=== PATIENT | female | born 1960 | race Caucasian/White ===

== ENCOUNTER 2022-03-12 17:29 | Emergency (ER) | payer BC, SELFPAY ==
--- NOTE | 2022-03-12 17:29 | ECG_ITS ---
APPROVED REPORT Exam: Resting ECG HR:94 bpm ECG Measurements Heart Rate 94 AXES PA 126 P 78 QRSd 76 QRS 72 QT 318 T 69 QTc 370 Conclusion SINUS RHYTHM Left atrial abnormality BORDERLINE ECG UNCONFIRMED REPORT Electronically signed by : Dominik Francis MD 03/13/2022 09:50:40
[2022-03-12 17:32] VITALS: BP 148/108; PULSE 80; RESP 16; TEMP 36.9; O2SAT 98; BMI 20.1
--- NOTE | 2022-03-12 17:36 | XR_ITS ---
PROCEDURE INFORMATION: Exam: XR Chest Exam date and time: 03/12/22 05:39 PM Age: 61 years old Clinical indication: Pain; Chest pressure; Additional info: Chest pain TECHNIQUE: Imaging protocol: XR of the chest. Views: 1 view. COMPARISON: No relevant prior studies available. FINDINGS: Lungs: Unremarkable. No consolidation. Pleural spaces: Unremarkable. No pleural effusion. No pneumothorax. Heart/Mediastinum: Unremarkable. No cardiomegaly. Bones/joints: Unremarkable. IMPRESSION: No acute findings.
[2022-03-12 17:50] LABS: Basophils # 0.1 K/mm3 (0-0.2); Basophils % 4.6 % (0.1-2.0); Eosinophils % 0.7 % (0.1-12.0); Hematocrit 48.5 % (37.0-47.0); Hemoglobin 16.5 g/dL (12.2-16.2); Lymphocytes # 1.1 K/mm3 (0.7-4.5); Lymphocytes % 51.3 % (10-50); Mean Corpuscular HGB Conc 34.1 g/dL (31.8-35.4); Mean Corpuscular Hemoglobin 31.7 pg (27.0-31.2); Mean Corpuscular Volume 92.9 fl (81-99); Mean Platelet Volume 7.6 fl (7.4-10.4); Monocytes # 0.3 K/mm3 (0.1-1.0); Monocytes % 11.6 % (1.7-9.3); Neutrophils # 0.8 K/mm3 (1.8-7.8); Neutrophils % 36.3 % (37.0-80.0); Platelet Count 228 K/mm3 (142-424); Red Blood Count 5.22 M/mm3 (4.20-5.40); Red Cell Distribution Width 13.6 % (11.5-17.5); White Blood Count 2.2 K/mm3 (4.8-10.8)
[2022-03-12 18:04] LABS: MANUAL DIFFERENTIAL MANUAL DIFFERENTIAL (MANUAL DIFF)
[2022-03-12 18:05] LABS: Alanine Aminotransferase 25 U/L (12-78); Albumin Level 4.4 g/dl (3.5-5.0); Albumin/Globulin Ratio 1.6 (1.1-1.8); Alkaline Phosphatase 65 U/L (38-126); Anion Gap 13.6 mEq/L (5-15); Aspartate Amino Transferase 34 U/L (14-36); Bilirubin,Total 0.2 mg/dl (0.2-1.3); Blood Urea Nitrogen 13 mg/dl (7-17); Calcium 9.5 mg/dl (8.4-10.2); Carbon Dioxide 25 mmol/L (22.0-30.0); Chloride 99 mmol/L (98-107); Creatinine Clearance Estimated 59 mL/min (50-200); Estimated Glomerular Filt Rate 73 ml/min (>60); GFR (African American) 89 ML/MIN (>60); Globulin 2.7 g/dL (1.3-3.2); Glucose 136 mg/dl (74-100); Potassium 3.6 mmoL/L (3.5-5.1); Sodium 134 mmol/L (136-145); Total Protein,Serum 7.1 g/dl (6.3-8.2)
[2022-03-12 18:17] LABS: Troponin I < 0.01 ng/ml (0.00-0.034)
[2022-03-12 19:15] LABS: Influenza A, PCR Not Detected (NotDetected); Influenza B, PCR Not Detected (NotDetected)
[2022-03-12 19:17] LABS: Lymphocytes % 60 % (10-50); Monocytes % 15 % (2-9); Neutrophils % 23 % (42-76); Platelet Estimate Normal; Total Cells Counted 100
[2022-03-12 19:38] LABS: D-Dimer 0.75 ug/mL (0.0-0.5)
[2022-03-12 19:48] LABS: Coronavirus 19, PCR Detected (NotDetected)
--- NOTE | 2022-03-12 20:28 | PC.NURSE ---
patient refused 2nd trop
--- NOTE | 2022-03-12 20:40 | ECG_ITS ---
APPROVED REPORT Exam: Resting ECG HR:79 bpm ECG Measurements Heart Rate 79 AXES QRSd 74 QRS 70 QT 344 T 49 QTc 379 Conclusion SUPRAVENTRICULAR RHYTHM MODERATE ST DEPRESSION [0.05+ mV ST DEPRESSION] ABNORMAL ECG UNCONFIRMED REPORT Electronically signed by : Dominik Francis MD 03/13/2022 09:48:35
--- NOTE | 2022-03-12 20:56 | [facility].EDCP ---
ED Disposition Clinical Impression: Chest pain Disposition: Home, Self-Care Condition on Discharge: Good Instructions: DI for Atypical Chest Pain Referrals: Provider,Referral, [Primary Care Provider] - - Critical Care Critical Care Time: No Attestation: On 03/12/22, the high probability of a clinically significant, sudden or life threatening deterioration of the following system(s) required my full and direct attention, intervention and personal management. The time I documented below is in addition to time spent performing reported procedures but includes the following listed in this critical care notation. Medical Decision Making - Boris Inquiry Pt receiving controlled substance: No Vital Signs: 03/12/22 17:32 03/12/22 20:58 Temperature 98.4 F 98.1 F Temperature Source Oral Oral Pulse Rate 80 Pulse Rate [Radial] 80 Respiratory Rate 16 16 Blood Pressure 134/78 Blood Pressure [Right Arm] 148/108 H Blood Pressure Mean [Right Arm] 121 Blood Pressure Position [Right Arm] Sitting 02 Sat by Pulse Oximetry 98 Oxygen Delivery Method Room Air - Lab Data Lab Results 03/12/22 17:40: WBC 2.2 L, RBC 5.22, Hgb 16.5 H, Hct 48.5 H, MCV 92.9, MCH 31.7 H, MCHC 34.1, RDW 13.6, Plt Count 228, MPV 7.6, Neut % (Auto) 36.3 L, Lymph % (Auto) 51.3 H, Anderson % (Auto) 11.6 H, Eos % (Auto) 0.7, Baso % (Auto) 4.6 H, Neut # (Auto) 0.8 L*, Lymph # (Auto) 1.1, Anderson # (Auto) 0.3, Eos # (Auto) 0.0, Baso # (Auto) 0.1, Total Counted 100, Neutrophils % (Manual) 23 L, Lymphocytes % (Manual) 60 H, Monocytes % (Manual) 15 H, Basophils % (Manual) 2.0 H, Platelet Estimate Normal, RBC Morphology Not Reportable 03/12/22 17:40: Sodium 134 L, Potassium 3.6, Chloride 99, Carbon Dioxide 25, Anion Gap 13.6, BUN 13, Creatinine 0.80, Estimated Creat Clear 59, Estimated GFR 73, Est GFR ( Amer) 89, Glucose 136 H, Calcium 9.5, Total Bilirubin 0.2, AST 34, ALT 25, Alkaline Phosphatase 65, Troponin I < 0.01, Total Protein 7.1, Albumin 4.4, Globulin 2.7, Albumin/Globulin Ratio 1.6 03/12/22 17:40: D-Dimer 0.75 H 03/12/22 19:10: SARS-CoV-2 (PCR) Detected A, Influenza A Untype (PCR) Not detected, Influenza Type B (PCR) Not detected Result diagrams: 03/12/22 17:40 03/12/22 17:40 Medical Decision Narrative: ddx includes but not limited to acs, thoracic mass, pe. hds, nad, well appearing on room air. labs show leukopenia, covid+ on rapid testing, cxr without acute findings, troponin <0.01, d dimer 0.75 but per YEARS criteria, acute PE unlikely. Serial EKGs without acute ischemic changes. Pain flared in ED but resolved on its own. Given strict ED return precautions. ADvised to f/u with PCP and pt states she will make appointment for within 1 week. Chest Pain HPI - General Chief Complaint: Chest Pain Stated Complaint: chest pain Time Seen by Provider: 03/12/22 18:00 Mode of Arrival: Ambulatory Limitations: No Limitations Description of Symptoms (Recalled from ER Triage Doc. by RN): TO ED PER [facility] CAR WITH C/O INTERMITTENT LT SIDE CHEST PAIN X 3 MONTHS STATES PAIN IS GETTING WORSE. PT DENIES ANY NAUSEA, VOMITING, SOB, DIAPHORESIS, PAIN IN LOWER EXTREMITIES. PT DENIES ANY PAIN AT PRESENT. - History of Present Illness HPI narrative: 61 yo female w/ hx breast cysts presents with chest pain. left chest pain that radiates to left upper arm for last 3 months, intermittent, currently pain free but worsened this am. does not worsen with exertion or deep breathing. recent covid positive contact at work. no increased cough, has had intermittent nonbloody diarrhea. - Related Data Allergies Allergy/AdvReac Type Severity Reaction Status Date / Time metoclopramide [From Reglan] Allergy Verified 03/12/22 17:35 [facility] History - Hepatitis A Screen Attestation statement:: This patient has been screened for Hepatitis A risk factors. ROS Obtained: Yes Systems reviewed as appropriate & no additional complaints - Cardiovascular Cardiovascular: Report
[2022-03-12 20:58] VITALS: BP 134/78; PULSE 80; RESP 16; TEMP 36.7; O2SAT 98
== END 2022-03-12 20:59 | disposition home or self-care (01) ==
PROVIDERS: Emergency Provider Student in an Organized Health Care Education/Training Program
DX: R07.9 Chest pain, unspecified (principal); D72.819 Decreased white blood cell count, unspecified; Z88.8 Allergy status to other drugs, medicaments and biological substances
CPT/HCPCS: 71045; 80053; 84484; 85007; 85025; 85378; 93005; 99284; C9803; U0003; U0005

== ENCOUNTER → 2022-08-17 09:10 | Outpatient (POV) | payer BC, SELFPAY | PROVIDERS: Visit Provider Dermatology | DX: Z00.00 Encounter for general adult medical examination without abnormal findings (principal) ==

== ENCOUNTER 2023-08-20 19:58 | Emergency (ER) | payer BC, SELFPAY ==
[2023-08-20 19:59] VITALS: BP 160/92; PULSE 88; RESP 18; TEMP 36.6; O2SAT 98; BMI 22.8
[2023-08-20 22:02] VITALS: BP 141/94; PULSE 81; RESP 16; TEMP 36.6; O2SAT 99
--- NOTE | 2023-08-21 22:12 | HMH.EDGENADL ---
Discharge Plan Disposition Patient Disposition: Home, Self-Care Condition: Good Referrals Follow up/Referrals: Provider,Referral, MD [Primary Care Provider] - See instructions Activity Restrictions/Add. Instructions Additional Instructions/Restrictions: Please return to the emergency department if you experience any new or worsening symptoms. Clinical Impressions Clinical Impression: Traumatic hematoma of hand Qualifiers: Encounter type: initial encounter Laterality: left Qualified Code(s): S60.222A - Contusion of left hand, initial encounter Discharge ED Provider: Pelon Smith Adult [facility] General Chief complaint: Extremity Injury, Upper Stated complaint: LT hand swelling, bruised Time Seen by Provider: 08/20/23 20:12 Mode of Arrival: Ambulatory Source of Information: Patient Limitations: No Limitations Description of Symptoms (Recalled from ER Triage Doc. by RN): Patient reports left hand tightness that started suddenly. Patient denies any injury or trauma to the hand. Bruising and swelling noted to left base of index finger. History of Present Illness HPI narrative: The patient presents with a chief complaint of a swollen right hand, which was first noticed earlier this evening. The patient denies any history of trauma, bug bites, or itching. The swelling has been progressively worsening, causing discomfort but not severe pain. The patient has been applying ice to the affected area. The patient denies any numbness or tingling in the fingers and reports being able to move them without difficulty, although the swelling makes it more challenging. The patient has no history of taking blood thinners and denies experiencing any fevers or chills. Related Data Allergies Allergy/AdvReac Type Severity Reaction Status Date / Time metoclopramide [From Reglan] Allergy Verified 03/12/22 17:35 [facility] Disclaimer: The information contained in this section may have been updated after the patient was seen, as this information can be updated by other users. Social History Smoking Status: Never smoker alcohol intake: never current occupational status: other Travel in the last 8 weeks: None ROS Obtained: Yes Systems reviewed as appropriate & no additional complaints except as documented As per HPI Physical Exam General General appearance: alert and in no apparent distress Head Head exam: atraumatic and normocephalic Eye Eye exam: Present normal appearance Neck Neck exam: Present normal inspection Chest Chest inspection: Present normal inspection and symmetric chest wall rise Respiratory Respiratory exam: Present normal lung sounds bilaterally; Absent respiratory distress Cardiovascular Cardiovascular exam: Present regular rate and normal rhythm Abdominal Exam Abdominal exam: Present soft Extremities Exam Extremities exam: Present other (Hemostatic hematoma left dorsal aspect of left hand, distally neurovascularly intact.) Neurological Exam Neurological exam: Present alert and oriented X3 Psychiatric Psychiatric exam: Present normal affect and normal mood Skin Skin exam: Present warm and dry Medical Decision Making Medical Records Medical records reviewed: Yes I reviewed the patient's medical records. Boris Inquiry Pt receiving controlled substance: No Vital Signs: 08/20/23 19:59 08/20/23 22:02 Temperature 97.8 F 98 F Temperature Source Oral Oral Pulse Rate 81 Pulse Rate [Left Radial] 88 Respiratory Rate 18 16 Blood Pressure 141/94 H Blood Pressure [Right Arm] 160/92 H Blood Pressure Mean [Right Arm] 114 Blood Pressure Source [Right Arm] Automatic Cuff Blood Pressure Position Sitting Blood Pressure Position [Right Arm] Sitting 02 Sat by Pulse Oximetry 98 Oxygen Delivery Method Room Air Room Air Medical Decision Narrative: Patient with history and exam per above presenting for evaluation of hand lesion Diagnoses considered include fracture, vascular injury, nerve i
== END 2023-08-20 22:03 | disposition home or self-care (01) ==
PROVIDERS: Emergency Provider Emergency Medicine
DX: S60.222A Contusion of left hand, initial encounter (principal); X58.XXXA Exposure to other specified factors, initial encounter
CPT/HCPCS: 99282

== ENCOUNTER 2025-05-02 14:54 | Outpatient (CLI) | payer BC, SELFPAY ==
--- NOTE | 2025-05-02 14:59 | XR_ITS ---
FINAL REPORT CLINICAL HISTORY: RT HAND PAIN X 1 MONTH/ ATTN 1ST FINGER LIMTIED RANGE OF MOTION COMPARISON: None FINDINGS: RIGHT HAND Three views show no evidence of acute displaced fracture or dislocation of the visualized bony architecture. There is mild degenerative change in the DIP and PIP joints. Mild osteopenia is noted. IMPRESSION: Mild degenerative change without acute bony abnormality. Reviewed, Interpreted and Dictated by Brianna Nieves MD Transcribed by Sharon Molina Authenticated and [facility]
--- OUTSIDE RECORDS SUMMARY | 2025-05-02 15:21 | XMS_ITS | Data Portability ---
Author Organization [place] - [facility] f or Pediatrics, [place] - [facility] Address [address] [place] [address] Assessment Encounter Date Assessment Date Assessment LastModified by Organization Details LastModified Time 01/31/2017 01/31/2017 56 yo f here today for medication refills. using flexeril every few months prn. getting less than two migraines per month and sumatriptan working well. uses hydroxyzine nightly during allergy season with excellent relief of symptoms. she has intentional 10 pound wt loss since september by cutting calories. only new concern is months of vaginal dryness and pain with intercourse. would like to try medication. no personal/fh breast cancer (other than remote aunt). no other concerns. last pap 2014 normal. Not available 01/31/2017 19:00:53 11/04/2017 11/04/2017 since 4 pm last night sudden onset LUQ pain, no n/v/d/constipa tion. slight decrease in appetite. tolerating food okay. no f/c. pain is worse with palpation and movement. no inciting event/trauma/i njury. Not available 11/04/2017 15:18:02 07/07/2018 07/07/2018 Halley is a marva 58 yo PM here for annual moving to [place] in july no concerns Not available 07/07/2018 15:52:06 Plan of Treatment Reminders Order Date Submit Date Provider Last Modified By Organization Details Last Modified Time Details Appointments None recorded. Lab CMP, serum or plasma 2017 018 [facility], [address], [place], [address], 8 16:02:43 amylase + lipase, serum 2017 018 [facility], [address], [place], [address], 8 16:02:44 CBC w/ diff 2017 018 [facility], [address], [place], [address], 8 16:02:43 ESR (erythroc yte sedimenta tion rate), blood 2017 018 [facility], [address] [facility], [place], [address], 8 16:02:44 urinalysi s, reflex culture 2017 018 [facility], [address] [facility] [address] [facility], [place], [address], 8 15:34:06 Referral functiona l capacity referral 2015 016 [email or web address] Not available 6 14:08:46 orthopedi c referral 2015 016 katharine Coles Ala, MD, [address] [place] [address], [place], [address], 6 14:26:27 Procedures None recorded. Surgeries None recorded. Imaging MAMMO, screening , tomosynth esis, bilateral [email or web address], [facility] [place], [place], [address], 9 13:21:27 CT, abdomen + pelvis, w/wo contrast 2017 018 [email or web address] [facility], [facility] [facility] , [address], [place], [address], 8 13:46:15 Medication Orders sumatript an 50 mg tablet 2017 018 INTERFACE [facility] #[id number], [address], [place], [place], [id number], 8 15:49:39 hydroxyzi ne HCl 50 mg tablet 2016 017 INTERFACE [facility] #[id number], [address], [place], [place], [id number], 7 18:53:08 cyclobenz aprine 10 mg tablet 2016 017 INTERFACE [facility] #[id number], [address], [place], [place], [id number], 7 18:53:07 sumatript an 50 mg tablet 2016 017 INTERFACE [facility] #[id number], [address], [place], [place], [id number], 7 18:53:07 Estrace 0.01% (0.1 mg/gram) vaginal cream 2016 017 INTERFACE [facility] #[id number], [address], [place], [place], [id number], 7 18:58:40 Senna with Docusate Sodium 8.6 mg-50 mg tablet 2014 015 [email or web address] [facility] #[id number], [address], [place], [place], [id number], 8 14:30:42 hydroxyzi ne HCl 50 mg tablet 2014 015 [facility] #94227, [address], [place], [place], [id number], 5 19:26:41 cyclobenz aprine 10 mg tablet 2014 015 INTERFACE [facility] #57039, [address] [place], [place], [id number], 5 19:26:51 sumatript an 50 mg tablet 2014 015 [email or web address] #74390, [address], [place], [id number], 5 19:26:41 Patient TargetsNo targets recorded. Patient InstructionsNo instructions recorded. 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 Referring Physician: Courtney Spencer [facility] Peggy, null Encounter Date: 12/12/2015 Results Created Date Observation Date Name Description Value Unit Range Abnormal Flag Note LastModifiedBy Organization Detail LastModifiedTime 01/16/20 15 01/15/2015 urina lysis compl ete, refle x cultu re color YELLOW yellow normal Not Available [facility] [address], [address], 01/15/2015 18:59:11 01/16/20 15 01/15/2015 urina lysis compl ete, refle x cultu re appearance HAZY clear abnormal Not Available [facility] [address], [address], 01/15/2015 18:59:11 01/16/20 15 01/15/2015 urina lysis compl ete, refle x cultu re specific gravity 1.025 1.001- 1.035 normal Not Available [facility] [address], [address], 01/15/2015 18:59:11 01/16/20 15 01/15/2015 urina lysis compl ete, refle x cultu re pH 5.5 5.0-8. 0 normal Not Available [facility] [address] [place] [address], [address], 01/15/2015 18:59:11 01/16/20 15 01/15/2015 urina lysis compl ete, refle x cultu re glucose NEGATI VE negati ve normal Not Available [facility] - [address], [address], 01/15/2015 18:59:11 01/16/20 15 01/15/2015 urina lysis compl ete, refle x cultu re bilirubin NEGATI VE negati ve normal Not Available [facility] - [address], [address], 01/15/2015 18:59:11 01/16/20 15 01/15/2015 urina lysis compl ete, refle x cultu re ketones TRACE negati ve abnormal Not Available [facility] - [address], [address], 01/15/2015 18:59:11 01/16/20 15 01/15/2015 urina lysis compl ete, refle x cultu re occult blood 2+ negati ve abnormal Not Available [facility] - [address], [address], 01/15/2015 18:59:11 01/16/20 15 01/15/2015 urina lysis compl ete, refle x cultu re protein NEGATI VE negati ve normal Not Available [facility] - [address], [address], 01/15/2015 18:59:11 01/16/20 15 01/15/2015 urina lysis compl ete, refle x cultu re nitrite NEGATI VE negati ve normal Not Available [facility] - [address], [address], 01/15/2015 18:59:11 01/16/20 15 01/15/2015 urina lysis compl ete, refle x cultu re leukocyte esterase TRACE negati ve abnormal Not Available [facility] - [address], [address], 01/15/2015 18:59:11 01/16/20 15 01/15/2015 urina lysis compl ete, refle x cultu re WBC 6-10 /hpf < or = 5 abnormal Not Available [facility] - [address], [address], 01/15/2015 18:59:11 01/16/20 15 01/15/2015 urina lysis compl ete, refle x cultu re RBC 3-10 /hpf < or = 2 abnormal Not Available [facility] - [address], [address], 01/15/2015 18:59:11 01/16/20 15 01/15/2015 urina lysis compl ete, refle x cultu re squamous epithelial cells 0-5 /hpf < or = 5 Not Available [facility] - [address], [address], 01/15/2015 18:59:11 01/16/20 15 01/15/2015 urina lysis compl ete, refle x cultu re bacteria FEW /hpf none seen abnormal Not Available [facility] - [address], [address], 01/15/2015 18:59:11 01/16/20 15 01/15/2015 urina lysis compl ete, refle x cultu re note This urine was garcia zed for the prese nce of WBC, RBC, bacte stan, casts , and other forme d eleme nts. Only those eleme nts seen were repor nesha. Not Available [facility] - [address], [address], 01/15/2015 18:59:11 01/16/20 15 01/15/2015 cultu re, urine reflexive urine culture CULTUR E INDICA NESHA - RESULT S TO FOLLOW Not Available [facility] [address] [place] [address], [address], 01/15/2015 18:59:11 01/16/20 15 01/17/2015 cultu re, urine culture, urine, routine abnormal CULTU RE, URINE , ROUTI NE MICRO NUMBE R: [id number] TEST STATU S: PRELI MINAR Y SPECI MEN SOURC E: URINE SPECI MEN QUALI TY: ADEQU ATE RESUL T: 10,00 0-50, 000 CFU/m L of Esche violette a coli , susce ptibi lity test repor t to follo w. Not Available [facility] [address] [place] [address], [address], 01/17/2015 05:05:33 01/16/20 15 01/17/2015 cultu re, urine culture, urine, routine abnormal CULTU RE, URINE , ROUTI NE MICRO NUMBE R: [id number] TEST STATU S: FINAL SPECI MEN SOURC E: URINE SPECI MEN QUALI TY: ADEQU ATE RESUL T: 10,00 0-50, 000 CFU/m L of Esche violette a coli E.col i ----- ----- ----- - INT FEDERICA AMOX/ CLAVU LANAT E S <=2 AMPIC ILLIN S 4 AMP/S ULBAC HUYNH S <=2 CEFEP COLLETTE S <=1 CEFTR IAXON E S <=1 CIPRO FLOXA FLORY S <=0.2 5 ERTAP ENEM S <=0.5 GENTA MICIN S <=1 IMIPE NEM S <=0.2 5 LEVOF LOXAC IN S <=0.1 2 NITRO FURAN TOIN S 32 PIP/T AZOBA CTAM S <=4 TOBRA MYCIN S <=1 TRIME THOPR IM/OBREGON LFA S <=20 S=Aileen cepti ble I=Int ermed iate R=Res istan t * = Not Teste d NR = Not Repor nesha NN = See Thera py Comme nts Not Available [facility] - [address], [address], 01/17/2015 17:45:18 01/21/20 15 01/20/2015 wet mount source: VAGINA L Not Available [facility] - [address], [address], 01/20/2015 14:08:31 01/21/20 15 01/20/2015 wet mount result: MODER ATE EPITH ELIAL CELLS MODER ATE WBCS MODER ATE BACTE STAN NO YEAST , TRICH OMONA S, OR CLUE CELLS SEEN Not Available [facility] - [address], [address], 01/20/2015 14:08:31 01/23/20 15 01/22/2015 urina lysis compl ete, refle x cultu re color YELLOW yellow normal Not Available [facility] - [address], [address], 01/22/2015 23:48:55 01/23/20 15 01/22/2015 urina lysis compl ete, refle x cultu re appearance CLEAR clear normal Not Available [facility] - [address], [address], 01/22/2015 23:48:55 01/23/20 15 01/22/2015 urina lysis compl ete, refle x cultu re specific gravity 1.020 1.001- 1.035 normal Not Available [facility] - [address], [address], 01/22/2015 23:48:55 01/23/20 15 01/22/2015 urina lysis compl ete, refle x cultu re pH 6.0 5.0-8. 0 normal Not Available [facility] - [address], [address], 01/22/2015 23:48:55 01/23/20 15 01/22/2015 urina lysis compl ete, refle x cultu re glucose NEGATI VE negati ve normal Not Available [facility] - [address], [address], 01/22/2015 23:48:55 01/23/20 15 01/22/2015 urina lysis compl ete, refle x cultu re bilirubin NEGATI VE negati ve normal Not Available [facility] - [address], [address], 01/22/2015 23:48:55 01/23/20 15 01/22/2015 urina lysis compl ete, refle x cultu re ketones NEGATI VE negati ve normal Not Available [facility] - [address], [address], 01/22/2015 23:48:55 01/23/20 15 01/22/2015 urina lysis compl ete, refle x cultu re occult blood TRACE negati ve abnormal Not Available [facility] - [address], [address], 01/22/2015 23:48:55 01/23/20 15 01/22/2015 urina lysis compl ete, refle x cultu re protein NEGATI VE negati ve normal Not Available [facility] - [address], [address], 01/22/2015 23:48:55 01/23/20 15 01/22/2015 urina lysis compl ete, refle x cultu re nitrite NEGATI VE negati ve normal Not Available [facility] - [address], [address], 01/22/2015 23:48:55 01/23/20 15 01/22/2015 urina lysis compl ete, refle x cultu re leukocyte esterase NEGATI VE negati ve normal Not Available [facility] - [address], [address], 01/22/2015 23:48:55 01/23/20 15 01/22/2015 urina lysis compl ete, refle x cultu re RBC 3-10 /hpf < or = 2 abnormal Not Available [facility] - [address], [address], 01/22/2015 23:48:55 01/23/20 15 01/22/2015 urina lysis compl ete, refle x cultu re squamous epithelial cells 0-5 /hpf < or = 5 Not Available [facility] - [address], [address], 01/22/2015 23:48:55 01/23/20 15 01/22/2015 urina lysis compl ete, refle x cultu re bacteria FEW /hpf none seen abnormal Not Available [facility] - [address], [address], 01/22/2015 23:48:55 01/23/20 15 01/22/2015 urina lysis compl ete, refle x cultu re comments MODERA TE MUCOUS THREAD S Not Available [facility] - [address], [address], 01/22/2015 23:48:55 01/23/20 15 01/22/2015 urina lysis compl ete, refle x cultu re note This urine was garcia zed for the prese nce of WBC, RBC, bacte stan, casts , and other forme d eleme nts. Only those eleme nts seen were repor nesha. Not Available [facility] - [address], [address], 01/22/2015 23:48:55 01/23/20 15 01/22/2015 cultu re, urine reflexive urine culture NO CULTUR E INDICA NESHA Not Available [facility] - [address], [address], 01/22/2015 23:48:55 01/25/20 15 01/25/2015 lipid panel , serum cholesterol, total 180 mg/dL 125-20 0 normal Not Available [facility] - [address], [address], 01/25/2015 09:48:53 01/25/20 15 01/25/2015 lipid panel , serum HDL cholesterol 76 mg/dL > or = 46 normal Not Available [facility] - [address], [address], 01/25/2015 09:48:53 01/25/20 15 01/25/2015 lipid panel , serum triglyceride s 79 mg/dL <150 normal Not Available [facility] - [address], [address], 01/25/2015 09:48:53 01/25/20 15 01/25/2015 lipid panel , serum LDL-choleste rol 88 mg/dL _(gibran c) <130 normal Zaire able range <100 mg/dL for patie nts with CHD or diabe dinorah and <70 mg/dL for diabe tic patie nts with known heart disea se. Not Available [facility] - [address], [address], 01/25/2015 09:48:53 01/25/20 15 01/25/2015 lipid panel , serum chol/HDLC ratio 2.4 (calc ) < or = 5.0 normal Not Available [facility] - [address], [address], 01/25/2015 09:48:53 01/25/2001/25/2015 lipid panel , serum non HDL cholesterol 104 mg/dL _(gibran c) normal Targe t for non-H DL melissa stero l is 30 mg/dL highe r than LDL melissa stero l targe t. Not Available [facility] - [address], [address], 01/25/2015 09:48:53 01/25/20 15 01/25/2015 CBC w/ auto diff white blood cell count 5.3 thous and/u L 3.8-10 .8 normal Not Available [facility] [address], [address], 01/25/2015 09:48:54 01/25/20 15 01/25/2015 CBC w/ auto diff red blood cell count 4.92 edmundo on/uL 3.80-5 .10 normal Not Available [facility] [address], [address], 01/25/2015 09:48:54 01/25/20 15 01/25/2015 CBC w/ auto diff hemoglobin 15.3 g/dL 11.7-1 5.5 normal Not Available [facility] [address], [address], 01/25/2015 09:48:54 01/25/20 15 01/25/2015 CBC w/ auto diff hematocrit 47.0 % 35.0-4 5.0 high Not Available [facility] [address], [address], 01/25/2015 09:48:54 01/25/20 15 01/25/2015 CBC w/ auto diff MCV 95.4 fL 80.0-1 00.0 normal Not Available [facility] [address], [address], 01/25/2015 09:48:54 01/25/2001/25/2015 CBC w/ auto diff MCH 31.0 pg 27.0-3 3.0 normal Not Available [facility] [address], [address], 01/25/2015 09:48:54 01/25/20 15 01/25/2015 CBC w/ auto diff MCHC 32.5 g/dL 32.0-3 6.0 normal Not Available [facility] [address], [address], 01/25/2015 09:48:54 01/25/20 15 01/25/2015 CBC w/ auto diff RDW 13.3 % 11.0-1 5.0 normal Not Available [facility] - [address], [address], 01/25/2015 09:48:54 01/25/20 15 01/25/2015 CBC w/ auto diff platelet count 335 thous and/u L 140-40 0 normal Not Available [facility] - [address], [address], 01/25/2015 09:48:54 01/25/20 15 01/25/2015 CBC w/ auto diff absolute neutrophils 2459 cells /uL 1500-7 800 normal Not Available [facility] - [address], [address], 01/25/2015 09:48:54 01/25/20 15 01/25/2015 CBC w/ auto diff absolute lymphocytes 2231 cells /uL 850-39 00 normal Not Available [facility] - [address], [address], 01/25/2015 09:48:54 01/25/20 15 01/25/2015 CBC w/ auto diff absolute monocytes 413 cells /uL 200-95 0 normal Not Available [facility] - [address], [address], 01/25/2015 09:48:54 01/25/20 15 01/25/2015 CBC w/ auto diff absolute eosinophils 138 cells /uL 15-500 normal Not Available [facility] - [address], [address], 01/25/2015 09:48:54 01/25/20 15 01/25/2015 CBC w/ auto diff absolute basophils 58 cells /uL 0-200 normal Not Available [facility] - [address], [address], 01/25/2015 09:48:54 01/25/20 15 01/25/2015 CBC w/ auto diff neutrophils 46.4 % normal Not Available [facility] - [address], [address], 01/25/2015 09:48:54 01/25/20 15 01/25/2015 CBC w/ auto diff lymphocytes 42.1 % normal Not Available [facility] - [address], [address], 01/25/2015 09:48:54 01/25/20 15 01/25/2015 CBC w/ auto diff monocytes 7.8 % normal Not Available [facility] - [address], [address], 01/25/2015 09:48:54 01/25/20 15 01/25/2015 CBC w/ auto diff eosinophils 2.6 % normal Not Available [facility] - [address], [address], 01/25/2015 09:48:54 01/25/20 15 01/25/2015 CBC w/ auto diff basophils 1.1 % normal Not Available [facility] - [address], [address], 01/25/2015 09:48:54 01/25/20 15 01/25/2015 TSH, serum or plasm a TSH 2.41 mIU/L normal Refer ence Range > or = 20 Years 0.40- 4.50 Pregn milton Range s First trime ster 0.26- 2.66 Secon d trime ster 0.55- 2.73 Third trime ster 0.43- 2.91 Not Available [facility] - [address], [address], 01/25/2015 12:09:32 01/25/20 15 01/29/2015 pap, LB + refle x HPV mRNA E6/E7 clinical information: ABDOMI NAL PAIN LOWER normal Not Available [facility] - [address], [address], 01/29/2015 17:39:37 01/25/20 15 01/29/2015 pap, LB + refle x HPV mRNA E6/E7 LMP: INFORM ATION NOT PROVID ED normal Not Available [facility] - [address], [address], 01/29/2015 17:39:37 01/25/20 15 01/29/2015 pap, LB + refle x HPV mRNA E6/E7 prev. Pap: NONE GIVEN normal Not Available [facility] [address], [address], 01/29/2015 17:39:37 01/25/20 15 01/29/2015 pap, LB + refle x HPV mRNA E6/E7 prev. BX: NONE GIVEN normal Not Available [facility] - [address], [address], 01/29/2015 17:39:37 01/25/2001/29/2015 pap, LB + refle x HPV mRNA E6/E7 source: Cervix normal Not Available [facility] [address], [address], 01/29/2015 17:39:37 01/25/2001/29/2015 pap, LB + refle x HPV mRNA E6/E7 statement of adequacy: normal Satis facto ry for evalu ation . Endoc ervic al/tr ansfo rmati on zone compo nent prese nt. Age and/o r menst rual statu s not provi ded Not Available [facility] - [address], [address], 01/29/2015 17:39:37 01/25/20 15 01/29/2015 pap, LB + refle x HPV mRNA E6/E7 interpretati on/result: Negati ve for intrae pithel ial lesion or malign milton. normal Not Available [facility] - [address], [address], 01/29/2015 17:39:37 01/25/2001/29/2015 pap, LB + refle x HPV mRNA E6/E7 cytotechnolo gist: KYP, CT(ASC P) normal Not Available [facility] - [address], [address], 01/29/2015 17:39:37 01/25/2001/29/2015 pap, LB + refle x HPV mRNA E6/E7 HPV MRNA E6/E7 Not Detect ed not detect ed normal This test was perfo rmed using the APTIM A HPV Assay ([employer] . This assay detec ts E6/E7 viral messe nger RNA (mRNA ) from 14 high- risk HPV types (16,1 8,31, 33,35 ,39,4 5,51, 52,56 ,58,5 9,66, 68). Not Available [facility] - [address], [address], 01/29/2015 17:39:37 01/25/2001/29/2015 CPT codes CPT codes 19083, 24183 normal [facility] assum es no respo nsibi lity for the accur acy of CPT codes provi ded which are for infor matio nal purpo ses only. CPT codes are payor speci fic and CPT codin g is the sole respo nsibi lity of the gavino ng entit y. Not Available [facility] - [address], [address], 01/29/2015 17:39:38 02/01/2002/01/2015 CMP, serum or plasm a glucose 96 mg/dL 65-99 normal Fasti ng refer ence inter andrea Not Available [facility] [address], [address], 02/01/2015 07:03:09 02/01/2002/01/2015 CMP, serum or plasm a urea nitrogen (BUN) 17 mg/dL 7-25 normal Not Available [facility] - [address], [address], 02/01/2015 07:03:09 02/01/20 15 02/01/2015 CMP, serum or plasm a creatinine 0.91 mg/dL 0.50-1 .05 normal For patie nts >49 years of age, the refer ence limit for Creat inine is appro ximat vijay 13% highe r for peopl e ident ified as Afric an-Am zully n. Not Available [facility] - [address], [address], 02/01/2015 07:03:09 02/01/20 15 02/01/2015 CMP, serum or plasm a eGFR non-afr. [place] 72 mL/mi n/1.7 3m2 > or = 60 normal Not Available [facility] - [address], [address], 02/01/2015 07:03:09 02/01/20 15 02/01/2015 CMP, serum or plasm a eGFR 83 mL/mi n/1.7 3m2 > or = 60 normal Not Available [facility] - [address], [address], 02/01/2015 07:03:09 02/01/20 15 02/01/2015 CMP, serum or plasm a BUN/creatini ne ratio NOT APPLIC ABLE (calc ) 6-22 Not Available [facility] - [address], [address], 02/01/2015 07:03:09 02/01/20 15 02/01/2015 CMP, serum or plasm a sodium 142 mmol/ L 135-14 6 normal Not Available [facility] - [address], [address], 02/01/2015 07:03:09 02/01/20 15 02/01/2015 CMP, serum or plasm a potassium 4.0 mmol/ L 3.4-4. 8 normal Not Available [facility] [address], [address], 02/01/2015 07:03:09 02/01/20 15 02/01/2015 CMP, serum or plasm a chloride 106 mmol/ L 98-110 normal Not Available [facility] [address], [address], 02/01/2015 07:03:09 02/01/20 15 02/01/2015 CMP, serum or plasm a carbon dioxide 23 mmol/ L 19-30 normal Not Available [facility] [address], [address], 02/01/2015 07:03:09 02/01/20 15 02/01/2015 CMP, serum or plasm a calcium 9.6 mg/dL 8.6-10 .4 normal Not Available [facility] [address], [address], 02/01/2015 07:03:09 02/01/20 15 02/01/2015 CMP, serum or plasm a protein, total 7.0 g/dL 6.4-8. 4 normal Not Available [facility] [address], [address], 02/01/2015 07:03:09 02/01/20 15 02/01/2015 CMP, serum or plasm a albumin 4.6 g/dL 3.6-5. 1 normal Not Available [facility] [address], [address], 02/01/2015 07:03:09 02/01/20 15 02/01/2015 CMP, serum or plasm a globulin 2.4 g/dL_ (calc ) 2.2-4. 0 normal Not Available [facility] [address], [address], 02/01/2015 07:03:09 02/01/20 15 02/01/2015 CMP, serum or plasm a albumin/glob ulin ratio 1.9 (calc ) 0.9-2. 3 normal Not Available [facility] - [address], [address], 02/01/2015 07:03:09 02/01/20 15 02/01/2015 CMP, serum or plasm a bilirubin, total 0.7 mg/dL 0.2-1. 2 normal Not Available [facility] - [address], [address], 02/01/2015 07:03:09 02/01/20 15 02/01/2015 CMP, serum or plasm a alkaline phosphatase 57 U/L 33-130 normal Not Available [facility] [address], [address], 02/01/2015 07:03:09 02/01/20 15 02/01/2015 CMP, serum or plasm a AST 18 U/L 10-35 normal Not Available [facility] - [address], [address], 02/01/2015 07:03:09 02/01/20 15 02/01/2015 CMP, serum or plasm a ALT 16 U/L 6-29 normal Not Available [facility] - [address], [address], 02/01/2015 07:03:09 11/04/19 18 11/04/2017 urina lysis , refle x cultu re specific gravity 1.015 1.000- 1.035 Not Available [facility] [address] [place], [address], 11/04/2017 15:34:06 11/04/19 18 11/04/2017 urina lysis , refle x cultu re pH 7 5.0-9. 0 Not Available [facility] [address] [place], [address], 11/04/2017 15:34:06 11/04/19 18 11/04/2017 urina lysis , refle x cultu re leukocytes NEG negati ve Not Available [facility] [address] [facility], [place], [address], 11/04/2017 15:34:06 11/04/19 18 11/04/2017 urina lysis , refle x cultu re nitrite NEG negati ve Not Available [facility] [address] [facility], [place], [address], 11/04/2017 15:34:06 11/04/19 18 11/04/2017 urina lysis , refle x cultu re protein NEG negati ve Not Available [facility] [address] [facility], [place], [address], 11/04/2017 15:34:06 11/04/19 18 11/04/2017 urina lysis , refle x cultu re glucose NEG negati ve Not Available [facility] [address] [facility], [place], [address], 11/04/2017 15:34:06 11/04/19 18 11/04/2017 urina lysis , refle x cultu re ketones NEG negati ve Not Available [facility] [address] [facility], [place], [address], 11/04/2017 15:34:06 11/04/19 18 11/04/2017 urina lysis , refle x cultu re urobilinogen NEG negati ve Not Available [facility] [address] [facility], [place], [address], 11/04/2017 15:34:06 11/04/19 18 11/04/2017 urina lysis , refle x cultu re bilirubin NEG negati ve Not Available [facility] [address] [facility] [place], [address], 11/04/2017 15:34:06 11/04/19 18 11/04/2017 urina lysis , refle x cultu re blood TRACE negati ve abnormal Not Available [place] [address] [facility] [place], [address], 11/04/2017 15:34:06 11/04/19 18 11/04/2017 urina lysis , refle x cultu re color YELLOW Not Available [facility] [place] [address] [facility] [place], [address], 11/04/2017 15:34:06 11/04/19 18 11/04/2017 urina lysis , refle x cultu re clarity CLEAR clear Not Available [facility] [place] [address] [facility] [place], [address], 11/04/2017 15:34:06 11/04/19 18 11/04/2017 urina lysis , micro scopi c WBC NONE SEEN per_h pf Not Available [place] [address] [place], [address], 11/04/2017 15:34:07 11/04/19 18 11/04/2017 urina lysis , micro scopi c RBC 0-2 per_h pf Not Available [place] [address] [place], [address], 11/04/2017 15:34:07 11/04/19 18 11/04/2017 urina lysis , micro scopi c epithelial cells FEW per_l pf Not Available [place] [address] [place], [address], 11/04/2017 15:34:07 11/04/19 18 11/04/2017 urina lysis , micro scopi c bacteria NONE SEEN per_h pf Not Available [place] [address] [place], [address], 11/04/2017 15:34:07 11/04/19 18 11/04/2017 urina lysis , micro scopi c mucus NONE SEEN per_l pf Not Available [place] [address] [place], [address], 11/04/2017 15:34:07 11/04/19 18 11/04/2017 urina lysis , micro scopi c casts NONE SEEN per_l pf Not Available [place] [address] [place] [facility] [place], [address], 11/04/2017 15:34:07 11/04/19 18 11/04/2017 urina lysis , micro scopi c crystals NONE SEEN per_h pf Not Available [place] [address] [place], [address], 11/04/2017 15:34:07 11/04/19 18 11/04/2017 urina lysis , micro scopi c reflex culture NOT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
== END 2025-05-02 23:59 | disposition home or self-care (01) ==
LOC: RAD 14:57
PROVIDERS: PCP Nurse Practitioner Family; Visit Provider Nurse Practitioner Family
DX: M19.041 Primary osteoarthritis, right hand (principal)
CPT/HCPCS: 73130

== ENCOUNTER 2025-07-01 17:40 | Outpatient (CLI) | payer BC, SELFPAY ==
--- NOTE | 2025-07-01 17:41 | XR_ITS ---
PROCEDURE INFORMATION: Exam: XR Right Hand Exam date and time: 07/01/2025 5:35 PM Age: 65 years old Clinical indication: Pain; Hand; Right; Additional info: Right hand pain TECHNIQUE: Imaging protocol: Radiologic exam of the right hand. Views: 3 or more views. COMPARISON: CR XR HAND RT MIN 3V 05/02/2025 3:01 PM FINDINGS: Bones/joints: No acute fracture or dislocation. Soft tissues: Normal. Other findings: There is a linear density measuring 13 mm in length projecting over the middle finger and ring finger. IMPRESSION: 1. No acute fracture or dislocation. 2. There is a linear density measuring 13 mm in length projecting over the middle finger and ring finger. This is most likely artifact, however, please exclude a foreign body.
--- OUTSIDE RECORDS SUMMARY | 2025-07-01 17:44 | XMS_ITS | Clinical Summary ---
Author Organization [facility] Address [address] [place] [address] Care Team Providers Care [employer] Consultant Name Role Phone Miriam Zuniga APRN Primary Care Provider Allergies Active Allergy Reactions Criticality Noted Date Comments Metoclopramide Anaphylaxis High 03/01/2022 Sulfa Antibiotics Unknown - Low Severity 2021 Unknown had back in her 20's Medications [place]-3 Fatty Acids (fish oil) 1000 MG capsule capsule Fish Oil Acti ve multivitamin with minerals (MULTIVITAMIN ADULT PO) multivitamin Active melatonin 5 MG tablet tablet Take 10 mg by mouth Daily. Active SUMAtriptan (Imitrex) 100 MG tabletIndicatio ns:Chronic migraine without aura without status migrainosus, not intractable Take one tablet at onset of headache. May repeat dose one time in 2 hours if headache not relieved. 12 tablet 5 2 Active cyclobenzaprine (FLEXERIL) 10 MG tabletIndicatio ns:Muscle spasm Take 1 tablet by mouth 2 (Two) Times a Day As Needed for Muscle Spasms. 60 tablet 5 2 Active Active Problems Problem Noted Date Diagnosed Date Chronic migraine without aur a without status migrainosus, not intractable 03/01/2022 Muscle spasm 03/01/2022 History of colon polyps 03/01/2022 Immunizations Immunization Administration Dates Next Due Tdap 07/07/2018 Family History Medical History Relation Name Comments Cancer Father Hypertension Mother Breast cancer Neg Hx Ovarian cancer Neg Hx Relation Name Status Comments Father Mother Social History Tobacco Use Types Packs/Day Years Used Date Smoking Tobacco: Never Smokeless Tobacco: Never Snuff Alcohol Use Standard Drinks/Week Comments Yes 0 (1 standard drink = 0.6 oz pur e alcohol) 4-6 drinks week Abuse Screen Answer Date Recorded Unsafe at Home or Work/School Not on file Feels Threatened by Someone? Not on file Does Anyone Keep You from Co ntacting Others or Doint Things Outside the Home? Not on file 07/29/2023 Physical Sign of Abuse Present Not on file 1 Housing Stability Answer Date Recorded Current Living Arrangements Not on file 07/17 Potentially Unsafe Housing Conditions Not on vignesh e 07/29/2023 Family and Community Support Answer Dmitriy e Recorded Help with Day-to-Day Activities Not on file 07/29/2023 Lonely or Isolated Not on file 07/29/2023 Employment Answer Date Recorded Do you want help finding or keeping work or a brenda b? Not on file 07/29/2023 Disabilities Answer Date Recorded Concentrating, Remembering, or Making Decisions Difficulty Not on file 07/29/2023 Doing Errands Independently Difficulty Not on fi le 07/29/2023 Education Answer Date Recorded Help with school or training? Not on file Preferred Language Not on file 07/29/2023 Comments No Sex and Gender Information Value Date Recorded Sex Assigned at Not on file Legal Sex Female 1:38 PM EDT Gender Identity Not on file Sexual Orientation Not on file Last Filed Vital Signs Vital Sign Reading Time Taken Comments Blood Pressure 116/66 03/01/2022 2:41 PM EDT Pulse 78 03/01/2022 2:41 PM EDT Temperature 36.7 C (98.1 F) 03/01/2022 2:41 PM EDT Respiratory Rate 18 03/01/2022 2:41 PM EDT Oxygen Saturation 98% 03/01/2022 2:41 PM EDT Inhaled Oxygen Concentration - - Weight 52.2 kg (115 lb) 03/01/2022 2:41 PM EDT Height 158.8 cm (5' 2.5 ) 03/01/2022 2:41 PM EDT Body Mass Index 20.7 03/01/2022 2:41 PM EDT Plan of Treatment Health Maintenance Due Date Last Done Comments Annual Gynecologic Pelvic an d Breast Exam 1961 COLOGUARD 2006 COLON CANCER SCREENING 5 YEA R SIGMO[address] COLONOGRAPHY 2006 FECAL OCCULT BLOOD TEST 2006 FIT Testing (1 year) 2006 Pneumococcal Vaccine 50+ (1 of 1 - PCV) 2011 ZOSTER VACCINE (1 of 2) 2011 COLONOSCOPY 09/19/2018 09/19/2015 COLORECTAL CANCER SCREENING 09/19/2018 ANNUAL PHYSICAL 02/16/2022 HEPATITIS C SCREENING 02/16/2022 MAMMOGRAM 04/13/2024 04/13/2022, 03/18, 04/07/2022 COVID-19 Vaccine (1 - season) 2025 INFLUENZA VACCINE 07/17/2025 TDAP/TD VACCINES (2 - Td or Tdap) 07/07/2028 018 Procedures Procedure Name Priority Date/Time Associated Diagnosis Comments MAMMO OUTSIDE FILMS Routine 04/13/2022 3 :24 PM EDT H/O mammogram from Last 3 Months or Most Recently Relevant to Health Maintenance Results * MAMMO Outside Films (04/13/2022 3:24 PM EDT) Narrative SYSTEMGENERATED, DOCUMENTATION - 04/13/2022 3:24 PM EDT This procedure was auto-finalized with no dictation required. us Miriam Efrain [employer] IMG MAMMOGRAPHY ORDERABLES Desirae l Result from Last 3 Months or Most Recently Relevant to Health Maintenance Insurance [facility] PPO Member Subscriber Plan / Payer (Ef fective 2019-Present) Name:Halley Casillas Relation to Subscriber:Self Name:Halley Casillas Payer ID:[id number] (NAIC) Type:Not on file Address: [address] [place] [id number] Care Teams [employer] Consultant Relationship Specialty Start Date End Date Efrain MARCELLE Pineda [address] [place] [address] PCP - General Nurse Practitioner 04/07/22
== END 2025-07-01 23:59 | disposition home or self-care (01) ==
LOC: RAD 17:41
PROVIDERS: PCP Nurse Practitioner Family; Visit Provider Physician Assistant
DX: M79.641 Pain in right hand (principal); R93.6 Abnormal findings on diagnostic imaging of limbs
CPT/HCPCS: 73130

== ENCOUNTER 2025-07-22 13:34 | Outpatient (CLI) | payer BC, SELFPAY ==
--- NOTE | 2025-07-22 13:37 | XR_ITS ---
FINAL REPORT TECHNIQUE: Bone densitometry calculations of the lumbar spine and left hip were obtained. CLINICAL HISTORY: SCREENING COMPARISON: None FINDINGS: Using L1-4, the bone mineral density of the spine is 0.794 g/cm2, corresponding to T-score of -2.3 and a Z score of -0.6. This is within the range of osteopenia. Using the left hip, the bone mineral density of the femoral neck is 0.570 g/cm2, corresponding to a T-score of -2.5 and a Z-score of -1.0. This is within the range of osteoporosis. FRAX not reported because some T-score at or below -2.5 NOTE: T-score: Standard deviation compared with peak bone mass of young adult mean. *Following the recommendations of the International Society of Bone densitometry, classification of hip BMD is based on the lower of two T-scores; total hip or femoral neck. IMPRESSION: 1. Bone mineral density of the lumbar spine within the range of osteopenia. 2. Bone mineral density of the left femoral neck within the range of osteoporosis. Reviewed, Interpreted and Dictated by Brittney Weeks MD Transcribed by Lesly Cash Authenticated and [facility]
--- OUTSIDE RECORDS SUMMARY | 2025-07-22 13:40 | XMS_ITS | Clinical Summary ---
Author Organization [facility] Address [address] [place] [address] Care Team Providers Care Jira Administrator Name Role Phone Miriam Zuniga APRN Primary Care Provider [phone] Allergies Active Allergy Reactions Criticality Noted Date Comments Metoclopramide Anaphylaxis High 03/01/2022 Sulfa Antibiotics Unknown - Low Severity 2021 Unknown had back in her 20's Medications [place]-3 Fatty Acids (fish oil) 1000 MG capsule [...] SCREENING 02/16/2022 MAMMOGRAM 04/13/2024 04/13/2022, 03/18, 04/07/2022 INFLUENZA VACCINE 05/17/2025 TDAP/TD VACCINES (2 - Td or Tdap) [...] auto-finalized with no dictation required. 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
== END 2025-07-22 23:59 | disposition home or self-care (01) ==
LOC: RAD 13:35
PROVIDERS: PCP Nurse Practitioner Family; Visit Provider Nurse Practitioner Family
DX: Z13.820 Encounter for screening for osteoporosis (principal); Z78.0 Asymptomatic menopausal state; M81.0 Age-related osteoporosis without current pathological fracture
CPT/HCPCS: 77080